=== PATIENT | female | born 1980 | race Caucasian/White ===

== ENCOUNTER 2024-05-28 11:56 | Emergency (ER) | payer OTHER, SELFPAY ==
--- NOTE | ~2024-05-28 | XR_ITS ---
CLINICAL HISTORY: cough 1 view chest x-ray Comparison: CR - CHEST 1 VIEW [id number] - 10/21/10 09:10 EDT Findings: The lungs are clear. Normal size heart. No acute fracture. IMPRESSION: 1. No acute findings. This document has been electronically signed by: Enrico Linares MD on 05/28/2024 13:20:25
[2024-05-28 12:09] VITALS: BP 156/83; PULSE 105; PULSE 107; RESP 18; TEMP 36.9; O2SAT 100; O2SAT 97
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
[2024-05-28] MEDS: Benzonatate 100 MG CAPSULE PO (13:10)
[2024-05-28 14:44] VITALS: BP 141/84; PULSE 94; RESP 18; O2SAT 99
[2024-05-28 15:15] LABS: Carbon Monoxide Refer to POC result
[2024-05-28 15:15] LABS: Carbon Monoxide POC 1.5 %
[2024-05-28 15:49] LABS: Influenza A PCR NEGATIVE (Negative); Influenza B PCR NEGATIVE (Negative); Resp Syncy Virus RNA Qual PCR NEGATIVE (Negative); SARS COV2 PCR INHOUSE NEGATIVE (Negative)
[2024-05-28 17:00] VITALS: BP 141/84; PULSE 94; RESP 18; TEMP 36.9; O2SAT 99
== END 2024-05-28 17:00 | disposition home or self-care (01) ==
PROVIDERS: Emergency Provider Emergency Medicine Emergency Medical Services; PCP Internal Medicine
DX: T59.811A Toxic effect of smoke, accidental (unintentional), initial encounter (principal); R05.9 Cough, unspecified; Y92.9 Unspecified place or not applicable; Z03.818 Encounter for observation for suspected exposure to other biological agents ruled out
CPT/HCPCS: 0241U; 36415; 71045; 82375; 99283

== ENCOUNTER → 2024-05-28 12:51 | Outpatient (BNV) | payer OTHER, SELFPAY | PROVIDERS: Emergency Provider Emergency Medicine Emergency Medical Services; PCP Internal Medicine; Visit Provider Radiology Diagnostic Radiology | DX: R05.9 Cough, unspecified (principal) | CPT/HCPCS: 71045 ==